=== PATIENT | male | born 1950 | race Caucasian/White ===

== ENCOUNTER 2023-06-12 17:37 | Inpatient (IN) | payer MEDICARE ==
[2023-06-12] MEDS ORDERED: Acetaminophen 325 MG TAB PO PRN (21:54)
[2023-06-12] MEDS ORDERED: Ondansetron PF 4 MG/2 ML Vial IVP PRN (21:54)
[2023-06-12] MEDS ORDERED: Ondansetron ODT 4 MG TAB PO PRN ×2 (21:54→22:42)
[2023-06-12] MEDS ORDERED: Acetaminophen 650 MG Suppository PR PRN (21:54)
[2023-06-12] MEDS ORDERED: Sodium Chloride 0.9% 1,000 ML IV SCH (22:00)
[2023-06-12] MEDS ORDERED: Pantoprazole 40 MG VIAL IVP SCH (22:15)
[2023-06-12] MEDS ORDERED: Lorazepam 1 MG TAB PO PRN (22:42)
[2023-06-12] MEDS ORDERED: Lorazepam 2 MG/ML VIAL IM PRN (22:42)
[2023-06-12] MEDS ORDERED: Electrolyte Replacement Protocol 1 EACH FS SCH (22:45)
[2023-06-12 22:56] VITALS: BMI 22.8
[2023-06-12] MEDS ORDERED: Multivitamins, Adult 10 ML, Thiamine HCl 100 MG, Folic Acid 1 MG in Dextrose 5 %-0.45 %... IV SCH (23:00)
[2023-06-12] MEDS ORDERED: Lorazepam 1 MG TAB PO SCH (23:00)
[2023-06-12] MEDS: Thiamine HCl 200 MG/2 ML VIAL SLOW IVP SCH (23:30)
[2023-06-12 23:45] LABS: INR-International Normal Ratio 1.2; PTT 26.7 sec (22.9-36.1); Prothrombin Time 15.2 sec (12.0-14.7)
[2023-06-13] MEDS ORDERED: Lorazepam 2 MG/ML VIAL SLOW IVP PRN ×2 (00:19→00:21)
[2023-06-13] MEDS: Lorazepam 2 MG/ML VIAL SLOW IVP SCH ×4 (02:23→18:11)
[2023-06-13 05:29] LABS: Hemoglobin 7.1 g/dL (14.0-18.0); Mean Corpuscular HGB CONC 33.6 g/dL (32.0-36.0); Mean Corpuscular Hemoglobin 32.3 pg (27.0-31.0); Mean Corpuscular Volume 95.9 fl (78.0-98.0); Mean Platelet Volume 9.4 fL (7.4-10.4); Platelet Count 192 10x3/uL (130-400); RBC Distribution Width 14.5 % (11.5-14.5)
[2023-06-13 05:43] LABS: Delete Auto Diff?? YES; Manual Diff?? YES
[2023-06-13 05:57] LABS: Anion Gap 11 mmol/L (10-20); BUN (Urea Nitrogen) 27 mg/dL (8.4-25.7); Calc. Creatinine Clearance 86 mL/min (70-130); Calcium 7.3 mg/dL (7.8-10.44); Carbon Dioxide 18 mmol/L (23-31); Chloride 112 mmol/L (98-107); Estimated GFR 94; Glucose 133 mg/dL (83-110); Potassium 3.6 mmol/L (3.5-5.1); Sodium 137 mmol/L (136-145)
[2023-06-13 08:20] LABS: Band 21 % (5-11); Eosinophils 1 % (0-10); Lymphocytes 8 % (21-51)
[2023-06-13 08:21] LABS: Neutrophil 69 % (42-75)
[2023-06-13 08:23] LABS: Platelet Adequacy Comment Platelets Normal; Polychromasia SLIGHT = 2-3 cells (100X) (0-2/hpf)
[2023-06-13] MEDS ORDERED: Folic Acid 1 MG TAB PO SCH (09:00)
[2023-06-13] MEDS ORDERED: Multivit, Therapeutic 1 TAB PO SCH (09:00)
[2023-06-13] MEDS: Pantoprazole 40 MG VIAL IVP SCH ×2 (09:32→21:41)
[2023-06-13 12:08] LABS: Hemoglobin 7.7 g/dL (14.0-18.0); Platelet Count 245 10x3/uL (130-400)
[2023-06-13] MEDS: Gabapentin 300 MG CAP PO SCH ×2 (15:30→21:35)
[2023-06-13] MEDS: Multivitamins, Adult 10 ML, Thiamine HCl 100 MG, Folic Acid 1 MG in Dextrose 5 %-0.45 %... IV SCH (18:09)
[2023-06-13 18:43] LABS: Hemoglobin 6.3 g/dL (14.0-18.0); Platelet Count 162 10x3/uL (130-400)
[2023-06-13] MEDS: DULoxetine 60 MG CAP PO SCH (21:28)
[2023-06-13] MEDS: Atorvastatin Calcium 10 MG TAB PO SCH (21:32)
[2023-06-13] MEDS ORDERED: Lorazepam 1 MG TAB PO PRN (22:43)
[2023-06-14] MEDS ORDERED: Lorazepam 2 MG/ML VIAL SLOW IVP PRN (00:27)
[2023-06-14 00:37] LABS: Platelet Count 172 10x3/uL (130-400)
[2023-06-14] MEDS: Thiamine HCl 200 MG/2 ML VIAL SLOW IVP SCH ×2 (04:28→23:07)
[2023-06-14] MEDS: Lorazepam 2 MG/ML VIAL SLOW IVP SCH ×5 (04:30→18:24)
[2023-06-14 04:58] LABS: #Eosinphils 0.2 thou/uL (0.0-0.7); #Monocytes 0.3 thou/uL (0.11-0.59); #Neutrophils 4.5 thou/uL (1.40-6.50); %Basophils 0.4 % (0.0-1.0); %Eosinophils 2.7 % (0.0-10.0); %Lymphocytes 25.8 % (21.0-51.0); %Monocytes 4.9 % (0.0-10.0); %Neutrophils 65.5 % (42.0-75.0); Hemoglobin 6.7 g/dL (14.0-18.0); Mean Corpuscular Hemoglobin 32.2 pg (27.0-31.0); Mean Corpuscular Volume 94.7 fl (78.0-98.0); Mean Platelet Volume 9.6 fL (7.4-10.4); Platelet Count 201 10x3/uL (130-400); RBC Distribution Width 14.9 % (11.5-14.5); Red Blood Cell (RBC) Count 2.08 mill/uL (4.70-6.10); White Blood Cell (WBC) Count 6.9 10x3/uL (4.8-10.8)
[2023-06-14 05:38] LABS: ALT (SGPT) 10 U/L (8-55); AST (SGOT) 17 U/L (5-34); Albumin 2.8 g/dL (3.4-4.8); Alkaline Phosphatase 56 U/L (40-110); Anion Gap 9 mmol/L (10-20); BUN (Urea Nitrogen) 10 mg/dL (8.4-25.7); Bilirubin, Total 0.2 mg/dL (0.2-1.2); Calc. Creatinine Clearance 96 mL/min (70-130); Calcium 7.2 mg/dL (7.8-10.44); Carbon Dioxide 18 mmol/L (23-31); Chloride 112 mmol/L (98-107); Estimated GFR 97; Glucose 113 mg/dL (83-110); Iron 28 ug/dL (65-175); Iron Binding Capacity, Total 244 mcg/dL (261-462); Potassium 3.1 mmol/L (3.5-5.1); Protein, Total 4.8 g/dL (5.8-8.1); Sodium 136 mmol/L (136-145)
[2023-06-14 05:48] LABS: Ferritin 59.93 ng/mL (22-322)
[2023-06-14] MEDS: Potassium Chloride 20 MEQ in Premix Bag 1 BAG IVPB SCH ×3 (08:18→14:13)
[2023-06-14] MEDS ORDERED: Losartan 25 MG TAB PO SCH (09:00)
[2023-06-14] MEDS ORDERED: Lidocaine 1% PF 5 ML VIAL ONE (10:05)
[2023-06-14] MEDS ORDERED: PROPOFOL 200 MG/20 ML VIAL ONE (10:05)
[2023-06-14] MEDS ORDERED: Iron, Sodium Ferric Gluconate 125 MG in Sodium Chloride 0.9% 100 ML IVPB SCH (10:45)
[2023-06-14] MEDS ORDERED: IRON SUCROSE COMPLEX 100 MG/5 ML SLOW IVP SCH (11:00)
[2023-06-14] MEDS: Gabapentin 300 MG CAP PO SCH ×3 (11:22→20:47)
[2023-06-14] MEDS: DULoxetine 60 MG CAP PO SCH ×2 (11:22→20:47)
[2023-06-14] MEDS: Pantoprazole 40 MG VIAL IVP SCH ×2 (11:23→20:47)
[2023-06-14] MEDS ORDERED: Sodium Ferric Gluconate 62.5 MG/5 ML AMP SLOW IVP SCH (12:00)
[2023-06-14] MEDS ORDERED: Potassium Chloride 20 MEQ TAB PO SCH (14:15)
[2023-06-14] MEDS ORDERED: Furosemide 40 MG/4 ML VIAL SLOW IVP SCH (15:30)
[2023-06-14] MEDS: Multivitamins, Adult 10 ML, Thiamine HCl 100 MG, Folic Acid 1 MG in Dextrose 5 %-0.45 %... IV SCH (18:24)
[2023-06-14 19:14] LABS: Glucose 101 mg/dL (83-110)
[2023-06-14] MEDS: Atorvastatin Calcium 10 MG TAB PO SCH (20:47)
[2023-06-14] MEDS ORDERED: Lorazepam 1 MG TAB PO PRN (22:43)
[2023-06-14] MEDS ORDERED: Lorazepam 0.5 MG TAB PO SCH (23:00)
[2023-06-15] MEDS: Lorazepam 2 MG/ML VIAL SLOW IVP SCH (00:01)
[2023-06-15] MEDS ORDERED: Lorazepam 0.5 MG TAB PO PRN ×2 (00:23→22:43)
[2023-06-15] MEDS ORDERED: Lorazepam 1 MG TAB PO PRN (00:24)
[2023-06-15] MEDS ORDERED: Lorazepam 2 MG/ML VIAL SLOW IVP PRN ×2 (00:28→00:32)
[2023-06-15 05:38] LABS: #Eosinphils 0.3 thou/uL (0.0-0.7); #Monocytes 0.4 thou/uL (0.11-0.59); #Neutrophils 3.9 thou/uL (1.40-6.50); %Basophils 0.5 % (0.0-1.0); %Eosinophils 4.5 % (0.0-10.0); %Lymphocytes 23.2 % (21.0-51.0); %Neutrophils 63.8 % (42.0-75.0); Hemoglobin 8.1 g/dL (14.0-18.0); Mean Corpuscular HGB CONC 33.9 g/dL (32.0-36.0); Mean Corpuscular Hemoglobin 31.8 pg (27.0-31.0); Mean Corpuscular Volume 93.7 fl (78.0-98.0); Mean Platelet Volume 9.5 fL (7.4-10.4); Platelet Count 184 10x3/uL (130-400); RBC Distribution Width 14.8 % (11.5-14.5); Red Blood Cell (RBC) Count 2.55 mill/uL (4.70-6.10)
[2023-06-15 06:03] LABS: Anion Gap 10 mmol/L (10-20); BUN (Urea Nitrogen) 8 mg/dL (8.4-25.7); Calc. Creatinine Clearance 96 mL/min (70-130); Calcium 7.4 mg/dL (7.8-10.44); Carbon Dioxide 20 mmol/L (23-31); Chloride 112 mmol/L (98-107); Estimated GFR 97; Glucose 108 mg/dL (83-110); Potassium 3.1 mmol/L (3.5-5.1); Sodium 139 mmol/L (136-145)
[2023-06-15] MEDS ORDERED: Potassium Chloride 20 MEQ TAB PO SCH (08:00)
[2023-06-15] MEDS: Pantoprazole 40 MG VIAL IVP SCH (08:09)
[2023-06-15] MEDS: DULoxetine 60 MG CAP PO SCH ×2 (08:09→19:49)
[2023-06-15] MEDS: Gabapentin 300 MG CAP PO SCH ×3 (08:09→19:49)
[2023-06-15] MEDS: Polyethylene Glycol 3350 17 GM Packet PO SCH (10:12)
[2023-06-15] MEDS: Multivitamins, Adult 10 ML, Thiamine HCl 100 MG, Folic Acid 1 MG in Dextrose 5 %-0.45 %... IV SCH (19:48)
[2023-06-15] MEDS: Atorvastatin Calcium 10 MG TAB PO SCH (19:49)
[2023-06-15] MEDS ORDERED: Senokot S 8.6-50 MG TAB PO SCH (21:00)
[2023-06-15] MEDS ORDERED: Thiamine 100 MG TAB PO SCH (23:00)
[2023-06-16 05:58] LABS: #Eosinphils 0.3 thou/uL (0.0-0.7); #Monocytes 0.5 thou/uL (0.11-0.59); #Neutrophils 3.5 thou/uL (1.40-6.50); %Basophils 0.5 % (0.0-1.0); %Eosinophils 5.5 % (0.0-10.0); %Lymphocytes 24.6 % (21.0-51.0); %Monocytes 8.8 % (0.0-10.0); %Neutrophils 59.7 % (42.0-75.0); Hemoglobin 8.5 g/dL (14.0-18.0); Mean Corpuscular HGB CONC 33.1 g/dL (32.0-36.0); Mean Corpuscular Hemoglobin 31.5 pg (27.0-31.0); Mean Corpuscular Volume 95.2 fl (78.0-98.0); Mean Platelet Volume 9.8 fL (7.4-10.4); Platelet Count 236 10x3/uL (130-400); RBC Distribution Width 15.8 % (11.5-14.5); White Blood Cell (WBC) Count 5.8 10x3/uL (4.8-10.8)
[2023-06-16 06:20] LABS: Anion Gap 10 mmol/L (10-20); BUN (Urea Nitrogen) 7 mg/dL (8.4-25.7); Calc. Creatinine Clearance 96 mL/min (70-130); Carbon Dioxide 23 mmol/L (23-31); Chloride 111 mmol/L (98-107); Estimated GFR 97; Glucose 123 mg/dL (83-110); Potassium 3.6 mmol/L (3.5-5.1); Sodium 140 mmol/L (136-145)
[2023-06-16] MEDS ORDERED: Ferrous Gluconate 324 MG TAB PO SCH (08:00)
[2023-06-16] MEDS: Polyethylene Glycol 3350 17 GM Packet PO SCH (08:26)
[2023-06-16] MEDS: Gabapentin 300 MG CAP PO SCH (08:27)
[2023-06-16] MEDS: DULoxetine 60 MG CAP PO SCH (08:27)
[2023-06-16 16:06] VITALS: BP 139/73; TEMP 97.7
== END 2023-06-16 16:51 | disposition home or self-care (01) | DRG 369 ==
LOC: 2SW 19:26
PROVIDERS: ADMIT Internal Medicine; ATTEND Family Medicine
PROC: 0DB38ZX Excision of Lower Esophagus, Via Natural or Artificial Opening Endoscopic, Diagnostic (ICD-10-PCS; principal; 2023-06-14)
PROC: 30233N1 Transfusion of Nonautologous Red Blood Cells into Peripheral Vein, Percutaneous Approach (ICD-10-PCS; 2023-06-14)
DX: K21.01 Gastro-esophageal reflux disease with esophagitis, with bleeding (principal); D62 Acute posthemorrhagic anemia; E87.1 Hypo-osmolality and hyponatremia; I10 Essential (primary) hypertension; F10.20 Alcohol dependence, uncomplicated; E83.51 Hypocalcemia; E86.0 Dehydration; E78.5 Hyperlipidemia, unspecified; K22.70 Barrett's esophagus without dysplasia; D50.9 Iron deficiency anemia, unspecified; F60.89 Other specific personality disorders; D72.829 Elevated white blood cell count, unspecified; Z88.8 Allergy status to other drugs, medicaments and biological substances; Z79.899 Other long term (current) drug therapy
CPT/HCPCS: 36415; 36416; 36430; 80048; 80053; 82607; 82728; 83540; 83550; 83615; 85014; 85018; 85025; 85049; 85610; 85730; 86850; 86900; 86901; 88305; C9113; J1940; J2060; J2704; J2916; J3411; J3480; J3490; J7042; P9016